=== PATIENT | female | born 1955 | race Caucasian/White ===

== ENCOUNTER 2023-07-24 13:43 | Outpatient (CLI) | payer BC | END 2023-07-24 13:44 | disposition home or self-care (01) | LOC: CT 13:43 | PROVIDERS: ATTEND Neurological Surgery | DX: G91.9 Hydrocephalus, unspecified (principal); G93.89 Other specified disorders of brain; Z98.2 Presence of cerebrospinal fluid drainage device | CPT/HCPCS: 70460 ==

== ENCOUNTER 2023-08-08 05:53 | Inpatient (IN) | payer MEDICARE, BC ==
[2023-08-08] MEDS ORDERED: Vasopressin 20 UNITS/ML VIAL ONE (06:13)
[2023-08-08] MEDS ORDERED: Norepinephrine 4 MG/4 ML VIAL ONE (06:13)
[2023-08-08] MEDS ORDERED: fentaNYL PF 100 MCG/2 ML SYRINGE ONE (06:14)
[2023-08-08] MEDS ORDERED: Phenylephrine 40 MG/NS 250 ML 250 ML ONE (06:15)
[2023-08-08] MEDS ORDERED: EPINEPHrine 1 MG/ML VIAL ONE (06:16)
[2023-08-08] MEDS ORDERED: Vancomycin 1 GM VIAL ONE (06:17)
[2023-08-08] MEDS ORDERED: Lidocaine 1% (PF) 30 ML VIAL ONE (06:17)
[2023-08-08] MEDS ORDERED: Bacitracin Zinc Ointment 30 gm TUBE ONE (06:17)
[2023-08-08] MEDS ORDERED: Labetalol HCl 100 MG/20 ML VIAL SLOW IVP PRN (06:26)
[2023-08-08] MEDS ORDERED: Morphine 2 MG/ML VIAL SLOW IVP PRN (06:26)
[2023-08-08] MEDS ORDERED: hydrALAZINE 20 MG/ML VIAL SLOW IVP PRN ×2 (06:26→11:01)
[2023-08-08] MEDS ORDERED: HYDROcodone/Acetaminophen 7.5/325 mg Tablet PO PRN (06:26)
[2023-08-08] MEDS ORDERED: Docusate 100 MG CAP PO PRN (06:26)
[2023-08-08] MEDS ORDERED: Ondansetron PF 4 MG/2 ML Vial IVP PRN (06:26)
[2023-08-08] MEDS ORDERED: Non-Formulary Item 1 EACH (Acetaminophen [Tylenol] 325 MG Capsule) PO PRN (06:30)
[2023-08-08 06:50] LABS: #Basophils 0.1 thou/uL (0.0-0.2); #Eosinphils 0.2 thou/uL (0.0-0.7); #Monocytes 0.8 thou/uL (0.11-0.59); #Neutrophils 5.6 thou/uL (1.40-6.50); %Basophils 0.9 % (0.0-1.0); %Eosinophils 1.8 % (0.0-10.0); %Lymphocytes 18.4 % (21.0-51.0); %Monocytes 9.3 % (0.0-10.0); %Neutrophils 69.2 % (42.0-75.0); Hematocrit 45.7 % (36.0-47.0); Hemoglobin 15.9 g/dL (12.0-16.0); Mean Corpuscular HGB CONC 34.8 g/dL (32.0-36.0); Mean Corpuscular Volume 97.6 fl (78.0-98.0); Mean Platelet Volume 8.7 fL (7.4-10.4); Platelet Count 541 10x3/uL (130-400); RBC Distribution Width 12.7 % (11.5-14.5); Red Blood Cell (RBC) Count 4.68 mill/uL (4.20-5.40); White Blood Cell (WBC) Count 8.2 10x3/uL (4.8-10.8)
[2023-08-08] MEDS ORDERED: Sodium Chloride 0.9% 100 ML ONE (06:50)
[2023-08-08] MEDS ORDERED: CEFAZOLIN 2 GM VIAL ONE (06:50)
[2023-08-08 07:04] LABS: INR-International Normal Ratio 1.1; Prothrombin Time 14.2 sec (12.0-14.7)
[2023-08-08 07:05] LABS: PTT 29.2 sec (22.9-36.1)
[2023-08-08] MEDS ORDERED: Rocuronium Bromide 10 MG/ML (10ML VIAL) ONE (07:07)
[2023-08-08] MEDS ORDERED: PHENYLEPHRINE-NS 100 MCG/ML 10 ML SYRINGE ONE (07:07)
[2023-08-08] MEDS ORDERED: PROPOFOL 200 MG/20 ML VIAL ONE (07:07)
[2023-08-08] MEDS ORDERED: Dexamethasone 20 MG/5 ML VIAL ONE (07:07)
[2023-08-08] MEDS ORDERED: Ondansetron PF 4 MG/2 ML Vial ONE (07:07)
[2023-08-08 07:24] LABS: Anion Gap 16 mmol/L (10-20); BUN (Urea Nitrogen) 8 mg/dL (9.8-20.1); Calc. Creatinine Clearance 105 mL/min (70-130); Calcium 8.7 mg/dL (7.8-10.44); Carbon Dioxide 22 mmol/L (23-31); Chloride 99 mmol/L (98-107); Estimated GFR 95; Glucose 106 mg/dL (80-115); Potassium 4.1 mmol/L (3.5-5.1); Sodium 133 mmol/L (136-145)
[2023-08-08] MEDS ORDERED: SUGAMMADEX SODIUM 200 MG/2 ML VIAL ONE (08:29)
[2023-08-08] MEDS ORDERED: Thrombin 5000 UNITS/5 ML VIAL ONE (08:37)
[2023-08-08] MEDS ORDERED: Lidocaine 1% MPF 2 ML VIAL ONE (08:51)
[2023-08-08] MEDS ORDERED: HYDROmorphone 2 MG/ML VIAL SLOW IVP PRN (09:34)
[2023-08-08] MEDS ORDERED: Ondansetron HCl/PF 4 MG/2 ML Vial IVP PRN (09:34)
[2023-08-08] MEDS: Sodium Chloride 0.9% 1,000 ML IV SCH ×2 (11:30→21:00)
[2023-08-08] MEDS: Levothyroxine Sodium 50 MCG TAB PO SCH (11:59)
[2023-08-08] MEDS: Vit A,C & E/Lutein/Minerals Tablet PO SCH ×2 (11:59→20:56)
[2023-08-08 12:24] VITALS: BMI 30.4
[2023-08-08] MEDS: Acetaminophen 325 MG TAB PO PRN ×2 (14:37→20:56)
[2023-08-08] MEDS: CEFAZOLIN 2 GM in Sodium Chloride 0.9% 100 ML IVPB SCH ×2 (14:39→22:19)
[2023-08-08] MEDS ORDERED: CEFAZOLIN 2 GM in Sodium Chloride 0.9% 100 ML IVPB SCH (15:00)
[2023-08-08] MEDS ORDERED: FLU VACC QS2023(65UP)/MF59C/PF 60 MCG/0.5 ML SYRINGE IM ONE (18:00)
[2023-08-08] MEDS: diphenhydrAMINE 50 MG/ML VIAL IVP PRN (20:56)
[2023-08-09] MEDS: CEFAZOLIN 2 GM in Sodium Chloride 0.9% 100 ML IVPB SCH (06:12)
[2023-08-09] MEDS: Levothyroxine Sodium 50 MCG TAB PO SCH (06:12)
[2023-08-09 06:25] LABS: #Monocytes 1.1 thou/uL (0.11-0.59); #Neutrophils 9.9 thou/uL (1.40-6.50); %Basophils 0.2 % (0.0-1.0); %Eosinophils 0.1 % (0.0-10.0); %Lymphocytes 13.7 % (21.0-51.0); %Monocytes 8.8 % (0.0-10.0); %Neutrophils 76.7 % (42.0-75.0); Hematocrit 37.6 % (36.0-47.0); Mean Corpuscular HGB CONC 33.5 g/dL (32.0-36.0); Mean Corpuscular Hemoglobin 33.6 pg (27.0-31.0); Mean Corpuscular Volume 100.3 fl (78.0-98.0); Mean Platelet Volume 8.2 fL (7.4-10.4); Platelet Count 461 10x3/uL (130-400); RBC Distribution Width 12.5 % (11.5-14.5); Red Blood Cell (RBC) Count 3.75 mill/uL (4.20-5.40)
[2023-08-09 06:34] LABS: Hemoglobin 12.6 g/dL (12.0-16.0)
[2023-08-09 06:53] LABS: Anion Gap 13 mmol/L (10-20); BUN (Urea Nitrogen) 7 mg/dL (9.8-20.1); Calc. Creatinine Clearance 104 mL/min (70-130); Calcium 8.5 mg/dL (7.8-10.44); Carbon Dioxide 23 mmol/L (23-31); Chloride 107 mmol/L (98-107); Estimated GFR 96; Glucose 113 mg/dL (80-115); Potassium 3.7 mmol/L (3.5-5.1); Sodium 139 mmol/L (136-145)
[2023-08-09] MEDS: Acetaminophen 325 MG TAB PO PRN ×2 (07:47→21:16)
[2023-08-09] MEDS: Sodium Chloride 0.9% 1,000 ML IV SCH ×2 (09:29→22:00)
[2023-08-09] MEDS: Vit A,C & E/Lutein/Minerals Tablet PO SCH ×2 (09:29→22:13)
[2023-08-09] MEDS ORDERED: Ketorolac Tromethamine 30 MG/ML VIAL IVP SCH (12:45)
[2023-08-09] MEDS ORDERED: Dexamethasone 10 MG/ML VIAL SLOW IVP SCH (12:45)
[2023-08-09] MEDS ORDERED: Dexamethasone 4 MG TAB PO SCH (20:00)
[2023-08-09] MEDS: diphenhydrAMINE 50 MG/ML VIAL IVP PRN (21:15)
[2023-08-10] MEDS: Acetaminophen 325 MG TAB PO PRN ×2 (04:05→17:45)
[2023-08-10] MEDS: Levothyroxine Sodium 50 MCG TAB PO SCH (05:30)
[2023-08-10] MEDS: Vit A,C & E/Lutein/Minerals Tablet PO SCH ×2 (08:38→21:01)
[2023-08-10] MEDS: Sodium Chloride 0.9% 1,000 ML IV SCH (16:02)
[2023-08-10 18:47] LABS: Bilirubin Negative (Negative); Blood, Urine 1+ (Negative); Clarity Extra Turbid (Clear); Glucose, Urine (Dipstick) Normal (Negative); Ketone, Urine Negative (Negative); Leukocyte 500 Leu/uL (Negative); Nitrite Negative (Negative); Protein, Urine (Dipstick) 100 mg/dL (Neg-Trace); Specific Gravity, Urine 1.008 (1.002-1.036); Urobilinogen Normal mg/dL (Less than 2); pH, Urine 6.5 (5.0-9.0)
[2023-08-10 19:31] LABS: CAUTI Indications for Culture Alt mental st,lethar; WBC/HPF Greater Than 50 HPF (0-3)
[2023-08-10 19:32] LABS: Bacteria/HPF 4+ HPF (None Seen); Squamous Epithelial None Seen HPF (0-3)
[2023-08-10 19:33] LABS: Urine Culture Reflex Yes Yes
[2023-08-10] MEDS: cefTRIAXone\\ROCEPHIN 1 GM in Sodium Chloride 0.9% 100 ML IVPB SCH (21:03)
[2023-08-11] MEDS: Sodium Chloride 0.9% 1,000 ML IV SCH ×2 (00:10→18:37)
[2023-08-11] MEDS: Levothyroxine Sodium 50 MCG TAB PO SCH (05:11)
[2023-08-11] MEDS: Vit A,C & E/Lutein/Minerals Tablet PO SCH ×2 (08:31→20:07)
[2023-08-11] MEDS: cefTRIAXone\\ROCEPHIN 1 GM in Sodium Chloride 0.9% 100 ML IVPB SCH (18:38)
[2023-08-12] MEDS: Sodium Chloride 0.9% 1,000 ML IV SCH ×2 (03:26→21:25)
[2023-08-12] MEDS: Levothyroxine Sodium 50 MCG TAB PO SCH (04:51)
[2023-08-12] MEDS: Vit A,C & E/Lutein/Minerals Tablet PO SCH ×2 (08:48→21:27)
[2023-08-12] MEDS: cefTRIAXone\\ROCEPHIN 1 GM in Sodium Chloride 0.9% 100 ML IVPB SCH (18:51)
[2023-08-13] MEDS: Sodium Chloride 0.9% 1,000 ML IV SCH ×2 (05:40→12:28)
[2023-08-13] MEDS: Levothyroxine Sodium 50 MCG TAB PO SCH (05:40)
[2023-08-13] MEDS: Vit A,C & E/Lutein/Minerals Tablet PO SCH ×2 (09:22→20:01)
[2023-08-13 12:00] LABS: Bilirubin Negative (Negative); Blood, Urine 1+ (Negative); CAUTI Indications for Culture Fever or rigors; Glucose, Urine (Dipstick) Normal (Negative); Ketone, Urine Negative (Negative); Leukocyte 500 Leu/uL (Negative); Nitrite Negative (Negative); Protein, Urine (Dipstick) 10 mg/dL (Neg-Trace); Specific Gravity, Urine 1.006 (1.002-1.036); Squamous Epithelial 0-3 HPF (0-3); Urobilinogen Normal mg/dL (Less than 2); WBC/HPF Greater than 50 HPF (0-3)
[2023-08-13 12:17] LABS: Clarity Cloudy (Clear)
[2023-08-13 12:18] LABS: Bacteria/HPF 2+ HPF (None Seen)
[2023-08-13 12:19] LABS: RBC/HPF 0-3 HPF (0-3)
[2023-08-13 12:20] LABS: Urine Culture Reflex Yes Yes
[2023-08-13] MEDS: cefTRIAXone\\ROCEPHIN 1 GM in Sodium Chloride 0.9% 100 ML IVPB SCH (18:57)
[2023-08-14] MEDS: Levothyroxine Sodium 50 MCG TAB PO SCH (05:06)
[2023-08-14] MEDS: Vit A,C & E/Lutein/Minerals Tablet PO SCH ×2 (09:27→20:48)
[2023-08-14] MEDS: Sodium Chloride 0.9% 1,000 ML IV SCH ×2 (09:27→16:42)
[2023-08-14] MEDS: Cefepime 2 GM in Sodium Chloride 0.9% 100 ML IVPB SCH (16:41)
[2023-08-15] MEDS: Cefepime 2 GM in Sodium Chloride 0.9% 100 ML IVPB SCH ×2 (04:53→16:12)
[2023-08-15] MEDS: Sodium Chloride 0.9% 1,000 ML IV SCH ×2 (04:53→18:43)
[2023-08-15] MEDS: Levothyroxine Sodium 50 MCG TAB PO SCH (04:54)
[2023-08-15] MEDS: Vit A,C & E/Lutein/Minerals Tablet PO SCH ×2 (10:09→20:52)
[2023-08-16] MEDS: Cefepime 2 GM in Sodium Chloride 0.9% 100 ML IVPB SCH ×2 (04:04→17:04)
[2023-08-16] MEDS: Levothyroxine Sodium 50 MCG TAB PO SCH (05:58)
[2023-08-16] MEDS: Vit A,C & E/Lutein/Minerals Tablet PO SCH ×2 (08:48→21:19)
[2023-08-16] MEDS: Sodium Chloride 0.9% 1,000 ML IV SCH (16:18)
[2023-08-17] MEDS: Cefepime 2 GM in Sodium Chloride 0.9% 100 ML IVPB SCH ×2 (03:56→18:07)
[2023-08-17] MEDS: Sodium Chloride 0.9% 1,000 ML IV SCH ×2 (04:03→18:07)
[2023-08-17] MEDS: Levothyroxine Sodium 50 MCG TAB PO SCH (05:02)
[2023-08-17] MEDS: Vit A,C & E/Lutein/Minerals Tablet PO SCH ×2 (09:24→20:12)
[2023-08-18] MEDS: Cefepime 2 GM in Sodium Chloride 0.9% 100 ML IVPB SCH ×2 (04:30→16:52)
[2023-08-18] MEDS: Levothyroxine Sodium 50 MCG TAB PO SCH (05:34)
[2023-08-18] MEDS: Sodium Chloride 0.9% 1,000 ML IV SCH ×2 (06:47→21:25)
[2023-08-18] MEDS: Vit A,C & E/Lutein/Minerals Tablet PO SCH ×2 (10:17→21:26)
[2023-08-19] MEDS: Cefepime 2 GM in Sodium Chloride 0.9% 100 ML IVPB SCH ×2 (04:32→15:35)
[2023-08-19] MEDS: Levothyroxine Sodium 50 MCG TAB PO SCH (05:05)
[2023-08-19] MEDS: Vit A,C & E/Lutein/Minerals Tablet PO SCH ×2 (08:56→20:21)
[2023-08-19] MEDS: Sodium Chloride 0.9% 1,000 ML IV SCH ×2 (11:23→22:59)
[2023-08-19 11:40] LABS: #Basophils 0.1 thou/uL (0.0-0.2); #Eosinphils 0.4 thou/uL (0.0-0.7); #Monocytes 0.7 thou/uL (0.11-0.59); #Neutrophils 5.5 thou/uL (1.40-6.50); %Basophils 0.7 % (0.0-1.0); %Eosinophils 4.6 % (0.0-10.0); %Lymphocytes 20.8 % (21.0-51.0); %Monocytes 8.2 % (0.0-10.0); Hematocrit 38.8 % (36.0-47.0); Hemoglobin 13.4 g/dL (12.0-16.0); Mean Corpuscular HGB CONC 34.5 g/dL (32.0-36.0); Mean Corpuscular Hemoglobin 33.4 pg (27.0-31.0); Mean Corpuscular Volume 96.8 fl (78.0-98.0); Mean Platelet Volume 8.3 fL (7.4-10.4); Platelet Count 440 10x3/uL (130-400); RBC Distribution Width 12.8 % (11.5-14.5); Red Blood Cell (RBC) Count 4.01 mill/uL (4.20-5.40); White Blood Cell (WBC) Count 8.5 10x3/uL (4.8-10.8)
[2023-08-19 12:01] LABS: Anion Gap 11 mmol/L (10-20); BUN (Urea Nitrogen) 8 mg/dL (9.8-20.1); Calc. Creatinine Clearance 127 mL/min (70-130); Calcium 8.1 mg/dL (7.8-10.44); Carbon Dioxide 24 mmol/L (23-31); Chloride 103 mmol/L (98-107); Estimated GFR 100; Glucose 150 mg/dL (80-115); Potassium 3.6 mmol/L (3.5-5.1); Sodium 134 mmol/L (136-145)
[2023-08-19] MEDS ORDERED: Melatonin 3 MG TAB PO PRN (19:26)
[2023-08-20] MEDS: Cefepime 2 GM in Sodium Chloride 0.9% 100 ML IVPB SCH ×2 (04:07→14:12)
[2023-08-20] MEDS: Levothyroxine Sodium 50 MCG TAB PO SCH (06:39)
[2023-08-20] MEDS: Sodium Chloride 0.9% 1,000 ML IV SCH (09:49)
[2023-08-20] MEDS: Vit A,C & E/Lutein/Minerals Tablet PO SCH (10:29)
[2023-08-20 16:04] VITALS: BP 116/77; TEMP 97.4
== END 2023-08-20 18:05 | DRG 26 ==
LOC: SDC 05:53 → CCU 09:44 → SURG B 08-09 16:38
PROVIDERS: ADMIT Neurological Surgery; ATTEND Internal Medicine
PROC: 009630Z Drainage of Cerebral Ventricle with Drainage Device, Percutaneous Approach (ICD-10-PCS; principal; 2023-08-08)
PROC: 3E033XZ Introduction of Vasopressor into Peripheral Vein, Percutaneous Approach (ICD-10-PCS; 2023-08-08)
DX: G91.9 Hydrocephalus, unspecified (principal); N39.0 Urinary tract infection, site not specified; Z98.890 Other specified postprocedural states; Z90.89 Acquired absence of other organs; Z79.890 Hormone replacement therapy; Z79.899 Other long term (current) drug therapy; Z98.2 Presence of cerebrospinal fluid drainage device; K21.9 Gastro-esophageal reflux disease without esophagitis; E03.9 Hypothyroidism, unspecified
CPT/HCPCS: 36415; 36416; 70450; 71046; 80048; 81001; 84443; 85025; 85610; 85730; 86850; 86900; 86901; 87077; 87086; 87186; 93970; C1713; C1729; C1889; J0171; J0360; J0692; J0696; J1100; J1200; J2001; J2405; J2704; J3370; J3490; J7050

== ENCOUNTER 2023-09-10 12:29 | Outpatient (CLI) | payer MEDICARE, BC | END 2023-09-10 12:30 | disposition home or self-care (01) | LOC: CT 12:29 | PROVIDERS: ATTEND Neurological Surgery | DX: G91.2 (Idiopathic) normal pressure hydrocephalus (principal); R93.0 Abnormal findings on diagnostic imaging of skull and head, not elsewhere classified | CPT/HCPCS: 70450 ==

== ENCOUNTER 2023-10-22 12:26 | Outpatient (CLI) | payer MEDICARE | END 2023-10-22 12:27 | disposition home or self-care (01) | LOC: CT 12:26 | PROVIDERS: ATTEND Neurological Surgery | DX: G91.9 Hydrocephalus, unspecified (principal); Z98.2 Presence of cerebrospinal fluid drainage device | CPT/HCPCS: 70450 ==